=== PATIENT | female | born 1985 ===

== ENCOUNTER 2018-03-19 16:37 | Emergency (ER) | payer BC ==
[2018-03-19 17:04] VITALS: BP 127/81
--- NOTE | 2018-03-19 17:38 | UC ---
Skin Complaint HPI - HPI Summary HPI Summary: PATIENT STUNG BY YELLOW JACKETS 2 DAYS AGO. 2 STINGS TO LEFT THIGH AND 1 TO LEFT SHOULDER. AREA OF REDNESS AROUND STING ON LEFT LEG IS INCREASING IN SIZE. SHE DENIES ANY DRAINAGE. NO FEVER. REPORTS SHE HAS A STRONG LOCAL REACTION TO INSECT STINGS. - History of Current Complaint Chief Complaint: UCLowerExtremity Time Seen by Provider: 03/19/18 17:23 Stated Complaint: LEG PAIN Hx Obtained From: Patient Hx Last Menstrual Period: 03/12/18 Onset/Duration: Sudden Onset, Lasting Days, Still Present Timing: Constant Onset Severity: Mild Current Severity: Moderate Pain Intensity: 2 Pain Scale Used: 0-10 Numeric Character: Pruritus, Pain, Redness Aggravating Factor(s): Touch Alleviating Factor(s): Nothing Associated Signs & Symptoms: Positive: Rash, Tenderness. Negative: Fever, Drainage, Red Streaks Related History: Insect Bite/Sting - Allergy/Home Medications Allergies/Adverse Reactions: Allergies Allergy/AdvReac Type Severity Reaction Status Date / Time Cephalosporins Allergy Rash Verified 03/19/18 17:05 Penicillins Allergy Rash Verified 03/19/18 17:05 Sulfa (Sulfonamide Allergy Rash Verified 03/19/18 17:05 Antibiotics) Review of Systems Constitutional: Negative Skin: Other - INSECT STING LEFT UPPER LEG, LEFT SHOULDER Respiratory: Negative Cardiovascular: Negative Gastrointestinal: Negative All Other Systems Reviewed And Are Negative: Yes PMH/Surg Hx/FS Hx/Imm Hx Previously Healthy: Yes - Surgical History Surgical History: None - Family History Known Family History: Negative: Hypertension - Social History Alcohol Use: Occasionally Substance Use Type: None Smoking Status (MU): Never Smoked Tobacco Physical Exam Triage Information Reviewed: Yes Appearance: Well-Appearing, No Pain Distress, Well-Nourished Vital Signs: Initial Vital Signs Temp 97.8 F 03/19/18 17:01 Pulse 73 03/19/18 17:01 Resp 18 03/19/18 17:01 BP 127/81 03/19/18 17:01 Pulse Ox 100 03/19/18 17:01 Vital Signs Reviewed: Yes Eyes: Positive: Conjunctiva Clear ENT: Positive: Hearing grossly normal Neck: Positive: Supple Respiratory: Positive: No respiratory distress, No accessory muscle use Cardiovascular: Positive: Pulses Normal Abdomen Description: Positive: Soft Musculoskeletal: Positive: No Edema Neurological: Positive: Alert Psychological: Positive: Age Appropriate Behavior Skin: Positive: Other - 22CM X 16 CM AREA OF ERYTHEMA SURROUNDING INSECT STING SITE LEFT MEDIAL THIGH. INSECT STING SITE LEFT SHOULDER WITH 6CM DIAMETER SURROUNDING ERYTHEMA Course/Dx - Course Course Of Treatment: DUE TO INCREASING LOCAL ERYTHEMA CONCERN FOR INFECTION AT STING SITE LEFT LEG. HOWEVER COULD SIMPLY BE ACUTE ALLERGIC REACTION. PATIENT DECLINES ANTIBIOTICS DUE TO MULTIPLE ALLERGIES. WILL COVER FOR LOCAL ALLERGIC REACTION WITH TOPICAL STEROID. PATIENT DECLINES ORAL STEROIDS. ADVISED TO TAKE A SECOND GENERATION OTC ANTIHISTAMINE IN THE MORNING AND BENADRYL AT NIGHT. ADVISED TO FOLLOW-UP IF SHE HAS CONTINUED SPREADING REDNESS OF THE SKIN , PURULENT DRAINAGE, INCREASED PAIN, FEVER OR ANY OTHER CONCERNING SYMPTOMS. - Diagnoses Provider Diagnoses: INSECT STING - LOCAL REACTION Discharge - Sign-Out/Discharge Documenting (check all that apply): Patient Departure All imaging exams completed and their final reports reviewed: No Studies - Discharge Plan Condition: Stable Disposition: HOME Prescriptions: Clobetasol Propionate 0.05 % TOPICAL BID PRN #1 tube PRN Reason: Itching Patient Education Materials: Insect Bite or Sting (ED) Referrals: Olvin Booth DO [Primary Care Provider] - If Needed Additional Instructions: USE DAILY HYPOALLERGENIC MOISTURIZING LOTION. APPLY TOPICAL STEROID TWICE DAILY. AVOID HEAT AND HOT WATER TAKE OTC ANTIHISTAMINE DAILY (CLARITIN (LORATADINE), ZYRTEC (CETIRIZINE) OR JOE (FEXOFENADINE) IN THE MORNING, 50MG BENADRYL AT NIGHT) DO NOT SCRATCH KEEP COOL, CLEAN AND DRY SEEK FOLLOW-UP IF YOU HAVE FURTHER SPREADING REDNESS OF THE SKIN, PURULENT DRAINAGE, FEVER, INCREASED PAIN OR ANY OTHER CONCERNING SYMPTOMS. I AM HERE TUESDAY AND TUESDAY FROM 2:30PM-10PM. CALL ME IF YOU HAVE ANY CONCERNS. - Billing Disposition and Condition Condition: STABLE Disposition: Home
== END 2018-03-19 17:40 | disposition home or self-care (01) ==
LOC: UCEAST 16:37
DX: T63.441A Toxic effect of venom of bees, accidental (unintentional), initial encounter (principal); L25.8 Unspecified contact dermatitis due to other agents; Y92.9 Unspecified place or not applicable; Z88.1 Allergy status to other antibiotic agents; Z88.0 Allergy status to penicillin; Z88.2 Allergy status to sulfonamides
CPT/HCPCS: 99212; G0463